=== PATIENT | female | born 1970 | race Two or more races ===

== ENCOUNTER 2023-07-15 06:27 | Day surgery (SDC) | payer OTHER | END 2023-07-15 17:05 | disposition home or self-care (01) | LOC: CIR.AMB 06:27 | PROVIDERS: ATTEND Colon & Rectal Surgery | DX: K64.2 Third degree hemorrhoids (principal); K64.8 Other hemorrhoids; K64.4 Residual hemorrhoidal skin tags; K92.2 Gastrointestinal hemorrhage, unspecified; Z20.822 Contact with and (suspected) exposure to COVID-19 ==